=== PATIENT | female | born 1965 | race Caucasian/White ===

== ENCOUNTER 2017-01-28 08:00 | Day surgery (SDC) | payer SELFPAY ==
[2015-03-14 17:29] VITALS: BMI 29.2
[2017-01-28] MEDS ORDERED: Lactated Ringer's 500 ML IV ONE (09:55)
[2017-01-28] MEDS ORDERED: Propofol 10 mg/ml Inj (20 ML) ONE (11:38)
[2017-01-28 11:58] VITALS: TEMP 97
[2017-01-28 12:12] VITALS: BP 108/63; PULSE 66; RESP 144; O2SAT 100
== END 2017-01-28 12:15 | disposition home or self-care (01) ==
LOC: H.ENDO 08:00
PROVIDERS: ATTEND Internal Medicine Gastroenterology
DX: Z12.11 Encounter for screening for malignant neoplasm of colon (principal); K64.0 First degree hemorrhoids
CPT/HCPCS: 45378; J2001; J2704; J7120